=== PATIENT | female | born 1960 | race African-American/Black ===

== ENCOUNTER 2016-11-15 05:31 | Emergency (ER) | payer OTHER ==
[~2016-11-15] VITALS: Ht 165.1 cm; Wt 65.0 kg
[~2016-11-15 05:31] MED LIST: ALL220TA PO; ASPI81TA11 OR; CALA120T PO; CANA300T PO; D31000CA OR; ENAL20TA81 PO; [UNRECOGNIZED DRUG - OTHER] OR
[2016-11-15 05:34] VITALS: BP 124/78; PULSE 93; RESP 18; TEMP 98.3; O2SAT 96
--- NOTE | 2016-11-15 06:16 | RADRPT ---
EXAM DATE/TIME: 11/15/2016 05:58 [place] COMPARISON: No previous studies available for comparison. INDICATIONS : Patient has had a cough since yesterday and chest pain on and off. MEDICAL HISTORY : None. SURGICAL HISTORY : None. ENCOUNTER: Initial ACUITY: 1 day PAIN SCORE: 0/10 LOCATION: Bilateral chest FINDINGS: A single view of the chest demonstrates the lungs to be symmetrically aerated without evidence of mas s, infiltrate or effusion. The cardiomediastinal contours are unremarkable. Osseous structures are intact. CONCLUSION: 1. No acute cardiopulmonary disease. Brandon Gay MD on November 15, 2016 at 6:14 Board Certified Radiologist. This report was verified electronically.
[2016-11-15 06:24] LABS: AUTOMATED NEUTROPHIL # 2.4 TH/MM3 (1.8-7.7); BASOPHIL % 0.5 % (0.0-2.0); EOSINOPHIL # 0.1 TH/MM3 (0-0.4); EOSINOPHIL % 2.7 % (0.0-4.0); HEMATOCRIT 37.4 % (35.0-46.0); HEMO FLAGS DIFF FINAL; LYMPH % 35.2 % (9.0-44.0); LYMPHOCYTE # 1.8 TH/MM3 (1.0-4.8); MEAN CELL VOLUME 79.1 FL (80.0-100.0); MEAN CORPUSCULAR HEMOGLOBIN 27.2 PG (27.0-34.0); MEAN CORPUSCULAR HGB CONC 34.4 % (32.0-36.0); MONO % 16.1 % (0.0-8.0); NEUT % 45.5 % (16.0-70.0); PLATELET COUNT 179 TH/MM3 (150-450); RED BLOOD COUNT 4.73 MIL/MM3 (4.00-5.30); WHITE BLOOD COUNT 5.2 TH/MM3 (4.0-11.0)
[2016-11-15 06:44] LABS: ANION GAP 10 MEQ/L (5-15); BICARBONATE 24.2 MEQ/L (21.0-32.0); BLOOD UREA NITROGEN 10 MG/DL (7-18); CHLORIDE 100 MEQ/L (98-107); GLOMERULAR FILTRATION RATE 118 ML/MIN (>89); POTASSIUM 3.8 MEQ/L (3.5-5.1); SODIUM (NA) 134 MEQ/L (136-145)
[2016-11-15] MEDS ORDERED: METF1000 PO (06:46)
[2016-11-15] MEDS ORDERED: VITA500T49 PO (06:46)
[2016-11-15] MEDS ORDERED: VITA100036 PO (06:46)
[2016-11-15] MEDS ORDERED: TRAD5TAB PO (06:46)
[2016-11-15] MEDS ORDERED: YL V100T PO (06:46)
[2016-11-15] MEDS ORDERED: VERA120T3 PO (06:46)
[2016-11-15] MEDS ORDERED: EMPA1TAB3 PO (06:46)
[2016-11-15 07:06] LABS: CREATINE KINASE 97 U/L (26-192)
--- NOTE | 2016-11-15 07:20 | PD ---
HPI Chief Complaint: Cold / Flu Symptoms Time Seen by Provider: 07:17 Travel History International Travel<30 days: No Contact w/Intl Traveler<30days: No Traveled to known affect area: No History of Present Illness HPI 56-year-old female with history of asthma, diabetes, presents to the ER with 3 days' history of coughing which is nonproductive according to patient, having some mild shortness of breath. She denies any fevers, vomiting, abdominal pains , chest pains, or any other symptoms. 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 She has been sneezing as well. She states that some of those children have been sick as well. Modifying Factors: None Associated Signs & Symptoms: Coughing, sneezing, shortness of breath Risk Factors: None PFSH Past Medical History Hx Anticoagulant Therapy: Yes (ASA) Blood Disorders: No Heart Rhythm Problems: No Cancer: No Cardiac Catheterization: No Cardiovascular Problems: Yes (HTN) High Cholesterol: Yes Congestive Heart Failure: No Diabetes: Yes Patient Takes Glucophage: Yes Gastrointestinal Disorders: No Genitourinary: No Heparin Induced Thrombocytopen: No Hypertension: Yes Immune Disorder: No Neurologic: No Psychiatric: No Reproductive: No Immunizations Current: No Tetanus Vaccination: Unknown Influenza Vaccination: Yes ?: Not Menopausal: Yes Past Surgical History Surgical History: No Previous Surgery Body Medical Devices: NONE Coronary Artery Bypass Graft: No Coronary Stent: No Family History Family Myocardial Infarction: Yes Social History Alcohol Use: No Tobacco Use: No Substance Use: No Allergies-Medications (Allergen,Severity, Reaction): Coded Allergies: No Known Allergies (Verified , 11/15/16) Reported Meds & Prescriptions Reported Meds & Active Scripts Active Reported Tradjenta (Linagliptin) 5 Mg Tab 5 Mg PO DAILY Vitamin B12 (Cyanocobalamin) 500 Mcg Tab 500 Mcg PO DAILY Vitamin B-6 (Pyridoxine HCl) 100 Mg Tab 100 Mg PO DAILY Vitamin D3 (Cholecalciferol) 1,000 Unit Cap 1,000 Units PO DAILY Jardiance (Empagliflozin) 25 Mg Tab 25 Mg PO DAILY Metformin (Metformin HCl) 1,000 Mg Tab 1,000 Mg PO BIDPC With meals Verapamil (Verapamil HCl) 120 Mg Tab 120 Mg PO DAILY Review of Systems Except as stated in HPI: all other systems reviewed are Neg Physical Exam Narrative GENERAL: Well-nourished, well-developed middle age -[place] female patient in no acute distress. SKIN: Warm and dry. HEAD: Normocephalic. EYES: No scleral icterus. No injection or drainage. ENT: Mucosa pink and moist. No erythema or exudates. No uvular edema. No uvular , palatal, or tonsillar deviation. Airway patent. NECK: Supple, trachea midline. CARDIOVASCULAR: Regular rate and rhythm without murmurs, gallops, or rubs. RESPIRATORY: Breath sounds equal bilaterally. No accessory muscle use. GASTROINTESTINAL: Abdomen soft, mild epigastric tenderness without guarding or rebound, nondistended. Benign. MUSCULOSKELETAL: No cyanosis, or edema. BACK: Nontender without obvious deformity. No CVA tenderness. Data Data Last Documented VS Vital Signs Date Time Temp Pulse Resp B/P Pulse Ox O2 Delivery O2 Flow Rate FiO2 11/15/16 05:34 98.3 93 18 124/78 96 Room Air Orders Electrocardiogram (11/15/16 05:39) Complete Blood Count With Diff (11/15/16 05:45) Basic Metabolic Panel (Bmp) (11/15/16 05:45) Ckmb (Isoenzyme) Profile (11/15/16 05:45) Troponin I (11/15/16 05:45) Chest, Single Ap (11/15/16 05:45) Influenzae A/B Antigen (11/15/16 06:32) Labs Laboratory Tests Test 11/15/16 06:02 White Blood Count 5.2 TH/MM3 Red Blood Count 4.73 MIL/MM3 Hemoglobin 12.9 GM/DL Hematocrit 37.4 % Mean Corpuscular Volume 79.1 FL Mean Corpuscular Hemoglobin 27.2 PG Mean Corpuscular Hemoglobin 34.4 % Concent Red Cell Distribution Width 14.0 % Platelet Count 179 TH/MM3 Mean Platelet Volume 7.9 FL Neutrophils (%) (Auto) 45.5 % Lymphocytes (%) (Auto) 35.2 % Monocytes (%) (Auto) 16.1 % Eosinophils (%) (Auto) 2.7 % Basophils (%) (Auto) 0.5 % Neutrophils # (Auto) 2.4 TH/MM3 Lymphocytes # (Auto) 1.8 TH/MM3 Monocytes # (Auto) 0.8 TH/MM3 Eosinophils # (Auto) 0.1 TH/MM3 Basophils # (Auto) 0.0 TH/MM3 CBC Comment DIFF FINAL Differential Comment Sodium Level 134 MEQ/L Potassium Level 3.8 MEQ/L Chloride Level 100 MEQ/L Carbon Dioxide Level 24.2 MEQ/L Anion Gap 10 MEQ/L Blood Urea Nitrogen 10 MG/DL Creatinine 0.63 MG/DL Estimat Glomerular Filtration 118 ML/MIN Rate Random Glucose 161 MG/DL Calcium Level 8.6 MG/DL Total Creatine Kinase 97 U/L Troponin I LESS THAN 0.02 NG/ML MDM Medical Decision Making Medical Screen Exam Complete: Yes Emergency Medical Condition: Yes Medical Record Reviewed: Yes Interpretation(s) Last 24 hours Impressions Chest X-Ray 11/15/16 0545 Signed Impressions: Service Date/Time: , November 15, 2016 05:58 - CONCLUSION: 1. No acute cardiopulmonary disease. Brandon Gay MD Laboratory Tests Test 11/15/16 06:02 Mean Corpuscular Volume 79.1 FL (80.0-100.0) Monocytes (%) (Auto) 16.1 % (0.0-8.0) Sodium Level 134 MEQ/L (136-145) Random Glucose 161 MG/DL (74-106) Troponin I LESS THAN 0.02 NG/ML (0.02-0.05) Differential Diagnosis Coughing, sneezing, shortness of breathURI versus bronchitis versus CHF versus pneumonia Narrative Course Patient does not have the flu. Chest x-ray did not show any signs of acute pneumonia or other acute pulmonary processes. Symptoms are indicative of underlying URI or viral syndrome. She may even have a underlying bronchitis. She is not wheezing actively. At this point, my plan would be to release her with symptomatic relief and have her follow-up with primary care physician. Return for any worsening in symptoms as needed. The plan has been discussed with her and she states understanding. Diagnosis Primary Impression: Viral syndrome Med/Other Pt SpecificInfo: Prescription(s) given Scripts Prednisone 50 Mg Tab50 Mg PO DAILY #3 TAB Ref 0 Prov:Melody Posey MD 11/15/16 Benzonatate (Tessalon Perles)100 Mg Qeq662 Mg PO TID PRN (COUGH) #20 CAP Ref 0 Prov:Melody Posey MD 11/15/16 Albuterol 6.7 GM Inh (Proventil Hfa 6.7 GM Inh)90 Mcg/Act Aer2 Puff INH Q4-6H PRN (SHORTNESS OF BREATH) #1 INHALER Ref 0 Prov:Melody Posey MD 11/15/16 Disposition: 01 DISCHARGE HOME Condition: Stable Melody Posey MD Nov 15, 2016 07:20
[2016-11-15] MEDS ORDERED: ALBU6.7H INH (07:39)
[2016-11-15] MEDS ORDERED: PRED50 PO (07:39)
[2016-11-15] MEDS ORDERED: BENZ100 PO (07:39)
[2016-11-15 07:55] VITALS: BP 130/71; PULSE 86; RESP 17; TEMP 98; O2SAT 99
--- NOTE | 2016-11-15 11:22 | EKG ---
Date Performed: 11/15/2016 Time Performed: 05:47:39 PTAGE: 56 years EKG: Sinus rhythm NORMAL ECG PREVIOUS TRACING : 03/06/2012 13.17 DOCTOR: Levi Monroy Interpretating Date/Time 11/15/2016 11:19:37
== END 2016-11-15 07:55 | disposition home or self-care (01) ==
LOC: NEPE 05:31
DX: B34.9 Viral infection, unspecified (principal); R05 Cough; R06.7 Sneezing; R06.02 Shortness of breath; E11.9 Type 2 diabetes mellitus without complications; I10 Essential (primary) hypertension; E78.00 Pure hypercholesterolemia, unspecified; Z79.82 Long term (current) use of aspirin; Z79.84 Long term (current) use of oral hypoglycemic drugs; Z87.09 Personal history of other diseases of the respiratory system
CPT/HCPCS: 71010; 80048; 82550; 84484; 85025; 87804; 93005